=== PATIENT | female | born 1985 | race Two or more races ===

== ENCOUNTER 2023-09-07 19:38 | Emergency (ER) | payer MEDICAID, OTHER ==
[~2023-09-07] VITALS: Ht 165.1 cm; Wt 111.0 kg
[2023-09-07 19:40] VITALS: O2SAT 97
[2023-09-07] MEDS ORDERED: LABETALOL 5MG/ML 4ML INJ IV ONE (20:15)
[2023-09-07 20:49] LABS: BASOPHILS % 1.2 % (0.0-2.0); DIFFERENTIAL COMMENT 0; HEMATOCRIT. 39.7 % (36.0-48.0); LYMPHOCYTES % 29.3 % (20.0-50.0); MEAN CORPUSCULAR HEMOGLOBIN 25.7 pg (28.0-32.0); MEAN CORPUSCULAR HGB CONC 32.9 g/dL (31.0-37.0); MEAN CORPUSCULAR VOLUME 78.3 fL (81.0-99.0); MEAN PLATELET VOLUME 9.8 fl (7.4-10.4); MONOCYTES % 4.8 % (2.0-8.0); NEUTROPHILS % 62.7 % (40.0-76.0); PLATELET 218 x1000/uL (130-400); RED BLOOD CELL COUNT 5.07 mill/uL (4.2-5.4); RED CELL DISTRIBUTION WIDTH 13.8 % (11.6-14.6); WHITE BLOOD COUNT 7.1 x1000/uL (4.5-11.0)
[2023-09-07 20:53] LABS: CHLORIDE 103 mEq/L (98-107); POTASSIUM 3.4 mEq/L (3.5-5.1); SODIUM 134 mEq/L (136-145)
[2023-09-07 20:54] LABS: CARBON DIOXIDE 21 mEq/L (21-32)
[2023-09-07] MEDS: LABETALOL 5MG/ML 4ML INJ IV NR (20:54)
[2023-09-07] MEDS: SODIUM CHLORIDE 0.9% 1,000 ML IV ONE (20:54)
[2023-09-07 20:58] LABS: D-DIMER 0.36 mg/L FEU (<0.50); INR 0.9
[2023-09-07 21:00] LABS: CREATININE 0.7 mg/dL (0.6-1.0); GLUCOSE 282 mg/dL (70-105); UREA NITROGEN BLOOD 10 mg/dL (9-23)
[2023-09-07 21:04] LABS: CLARITY URINE CLEAR (CLEAR); COLOR URINE YELLOW (YELLOW); GLUCOSE URINE 3+ (NEGATIVE); KETONES URINE 1+ (NEGATIVE); LEUKOCYTE ESTERASE URINE NEGATIVE (NEGATIVE); NITRITE URINE NEGATIVE (NEGATIVE); OCCULT BLOOD URINE 3+ (NEGATIVE); PH URINE 5.5 (4.5-8.0); PROTEIN URINE TRACE (NEGATIVE); SPECIFIC GRAVITY URINE 1.021 (1.005-1.030); UROBILINOGEN URINE 0.2 E.U./dL (0.2-1.0)
[2023-09-07 21:09] LABS: TROPONIN I HIGH SENSITIVITY < 4 ng/L (3.0-34)
[2023-09-07 21:31] LABS: RBC URINE 25-50 /hpf (0-2)
[2023-09-07 21:32] LABS: BACTERIA URINE TRACE; SQUAMOUS EPITHELIAL CELL URINE 1+ /lpf (RARE/1+); WBC URINE 0-2 /hpf (0-2)
[2023-09-07 22:52] LABS: ALANINE AMINOTRANSFERASE 17 IU/L (10-49); ALBUMIN 4.7 g/dL (3.2-4.8); ASPARTATE AMINOTRANSFERASE 17 IU/L (<34); BILIRUBIN DIRECT 0.1 mg/dL (<=3.0); BILIRUBIN TOTAL 0.4 mg/dL (0.1-1.0); PROTEIN TOTAL 7.6 g/dL (6.0-8.3)
[2023-09-08 03:01] LABS: TROPONIN I HIGH SENSITIVITY < 4 ng/L (3.0-34)
[2023-09-08 03:34] VITALS: BP 182/100; PULSE 99; RESP 20; TEMP 98.2
== END 2023-09-08 03:36 | disposition home or self-care (01) ==
LOC: ER 19:38
DX: R07.89 Other chest pain (principal); I10 Essential (primary) hypertension
CPT/HCPCS: 99285; 96374; 71045; 96361; 80076; 80048; 81003; 84702; 85025; 85379; 85610; 84484 ×2; 93005; 36415; J3490; J7030

== ENCOUNTER 2023-09-10 20:02 | Emergency (ER) | payer MEDICAID ==
[~2023-09-10] VITALS: Ht 165.1 cm; Wt 109.0 kg
[2023-09-10 20:09] VITALS: O2SAT 99
[2023-09-10 21:02] LABS: BASOPHILS % 0.4 % (0.0-2.0); DIFFERENTIAL COMMENT 0; EOSINOPHILS % 1.8 % (0.0-5.0); HEMATOCRIT. 40.7 % (36.0-48.0); HEMOGLOBIN. 13.6 g/dL (12.0-16.0); LYMPHOCYTES % 24.5 % (20.0-50.0); MEAN CORPUSCULAR HEMOGLOBIN 26.3 pg (28.0-32.0); MEAN CORPUSCULAR HGB CONC 33.4 g/dL (31.0-37.0); MEAN CORPUSCULAR VOLUME 78.7 fL (81.0-99.0); MEAN PLATELET VOLUME 9.1 fl (7.4-10.4); NEUTROPHILS % 68.3 % (40.0-76.0); PLATELET 248 x1000/uL (130-400); RED BLOOD CELL COUNT 5.17 mill/uL (4.2-5.4); RED CELL DISTRIBUTION WIDTH 13.9 % (11.6-14.6); WHITE BLOOD COUNT 7.6 x1000/uL (4.5-11.0)
[2023-09-10 21:06] LABS: CHLORIDE 105 mEq/L (98-107); POTASSIUM 3.8 mEq/L (3.5-5.1); SODIUM 136 mEq/L (136-145)
[2023-09-10 21:07] LABS: CALCIUM 9.3 mg/dL (8.7-10.4); CARBON DIOXIDE 22 mEq/L (21-32)
[2023-09-10 21:12] LABS: CREATININE 0.7 mg/dL (0.6-1.0); GLUCOSE 188 mg/dL (70-105); UREA NITROGEN BLOOD 7 mg/dL (9-23)
[2023-09-10 21:14] LABS: ALANINE AMINOTRANSFERASE 21 IU/L (10-49); ALBUMIN 4.6 g/dL (3.2-4.8); ASPARTATE AMINOTRANSFERASE 20 IU/L (<34); BILIRUBIN DIRECT 0.1 mg/dL (<=3.0); BILIRUBIN TOTAL 0.5 mg/dL (0.1-1.0); PROTEIN TOTAL 7.2 g/dL (6.0-8.3)
[2023-09-10 21:25] LABS: TROPONIN I HIGH SENSITIVITY < 4 ng/L (3.0-34)
[2023-09-10 23:50] LABS: TROPONIN I HIGH SENSITIVITY < 4 ng/L (3.0-34)
[2023-09-11] MEDS: HYDRALAZINE HCL 10MG TABLET PO NR (01:36)
[2023-09-11] MEDS: ASPIRIN 81MG TABLET PO ONE (01:36)
[2023-09-11] MEDS: ASPIRIN 325MG TABLET PO NR (01:41)
[2023-09-11] MEDS ORDERED: ASPIRIN 81MG TABLET PO NR (01:45)
[2023-09-11 01:59] VITALS: BP 109/55; PULSE 109; RESP 15; TEMP 98.2
== END 2023-09-11 02:08 | disposition home or self-care (01) ==
LOC: ER 20:02
DX: R07.89 Other chest pain (principal); R06.02 Shortness of breath; I10 Essential (primary) hypertension
CPT/HCPCS: 36415; 71045; 80048; 80076; 84484; 84702; 85025; 85379; 93005; 99285